=== PATIENT | male | born 1995 | race Caucasian/White ===

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

== ENCOUNTER 2017-09-22 15:49 | Emergency (ER) | payer BC ==
[2017-09-22] MEDS ORDERED: Ketorolac 30 MG/ML SDV IVPUSH ONE (16:33)
[2017-09-22] MEDS ORDERED: Sodium Chloride 0.9% 1,000 ML IV ONE (16:33)
[2017-09-22] MEDS ORDERED: Ondansetron 4 MG/2 ML SDV IVPUSH ONE (16:33)
--- NOTE | 2017-09-22 16:39 | EDM.PDOC ---
ED HPI GENERAL MEDICAL PROBLEM - General Chief Complaint: Headache Stated Complaint: PAIN IN HEAD Time Seen by Provider: 09/22/17 16:33 - History of Present Illness INITIAL COMMENTS - FREE TEXT/NARRATIVE: HISTORY AND PHYSICAL: History of present illness: Patient is 22-year-old male presents for concern of headache he states he had similar episodes with dehydration in the past states he is playing oliva or not he wants by mouth fluids earlier today to the no trauma fever chills or other complaints. Review of systems: As per history of present illness and below otherwise all systems reviewed and negative. Past medical history: As per history of present illness and as reviewed below otherwise noncontributory. Surgical history: As per history of present illness and as reviewed below otherwise noncontributory. Social history: No reported history of drug or alcohol abuse. Family history: As per history of present illness and as reviewed below otherwise noncontributory. Physical exam: HEENT: Atraumatic, normocephalic, pupils reactive, negative for conjunctival pallor or scleral icterus, mucous membranes dry, throat clear, neck supple, nontender, trachea midline. Lungs: Clear to auscultation, breath sounds equal bilaterally, chest nontender. Heart: S1S2, regular, negative for clicks, rubs, or JVD. Abdomen: Soft, nondistended, nontender. Negative for masses or hepatosplenomegaly. Negative for costovertebral tenderness. Pelvis: Stable nontender. Genitourinary: Deferred. Rectal: Deferred. Extremities: Atraumatic, negative for cords or calf pain. Neurovascular unremarkable. Neuro: Awake, alert, oriented. Cranial nerves II through XII unremarkable. Cerebellum unremarkable. Motor and sensory unremarkable throughout. Exam nonfocal. Diagnostics: Deferred Therapeutics: Normal saline 1 L bolus Toradol 30 mg IV Impression: #1 cephalgia #2 dehydration Definitive disposition and diagnosis as appropriate pending reevaluation and review of above. frontal headache Pain Score (Numeric/FACES): 10 - Related Data Allergies Allergy/AdvReac Type Severity Reaction Status Date / Time No Known Allergies Allergy Verified 09/22/17 16:29 Home Meds: Home Meds . [No Known Home Meds] 04/08/15 [History] Past Medical History - Past Health History Medical/Surgical History: Denies Medical/Surgical History Social & Family History - Family History Family Medical History: Noncontributory - Tobacco Use Smoking Status *Q: Never Smoker Years of Tobacco use: 1 Packs/Tins Daily: 0.1 Used Tobacco, but Quit: No Second Hand Smoke Exposure: No - Caffeine Use Caffeine Use: Reports: Coffee - Recreational Drug Use Recreational Drug Use: Yes Drug Use in Last 12 Months: Yes Recreational Drug Type: Reports: Marijuana/Hashish Recreational Drug Use Frequency: Weekly ED ROS GENERAL - Review of Systems Review Of Systems: ROS reveals no pertinent complaints other than HPI. ED EXAM, GENERAL - Physical Exam Exam: See Below (See dictation) Course - Vital Signs Last Recorded V/S: Last Vital Signs Temp 36.7 C 09/22/17 16:29 Pulse 64 09/22/17 16:29 Resp 18 09/22/17 16:29 BP 140/66 09/22/17 16:29 Pulse Ox 100 09/22/17 16:29 - Orders/Labs/Meds Orders: Active Orders 24 hr Category Date Time Status Sodium Chloride 0.9% [Normal Saline] 1,000 ml Med 09/22/17 16:33 Active IV STAT Medication Orders Sodium Chloride (Normal Saline) 1,000 mls @ 999 mls/hr IV STAT ONE Stop: 09/22/17 17:33 Meds: Medications Generic Name Dose Route Start Last Admin Trade Name Freq PRN Reason Stop Dose Admin Sodium Chloride 1,000 mls @ 999 mls/hr 09/22/17 16:33 Normal Saline IV 09/22/17 17:33 STAT ONE Discontinued Medications Generic Name Dose Route Start Last Admin Trade Name Freq PRN Reason Stop Dose Admin Ketorolac Tromethamine 30 mg 09/22/17 16:33 Toradol IVPUSH 09/22/17 16:34 ONETIME ONE Ondansetron HCl 4 mg 09/22/17 16:33 Zofran IVPUSH 09/22/17 16:34 ONETIME ONE Departure - Departure Time of Disposition: 16:38 Disposition: Home, Self-Care 01 Condition: Good Clinical Impression: Cephalgia, Dehydration - Discharge Information Referrals: PCP,None [Primary Care Provider] - Additional Instructions: The following information is given to patients seen in the emergency department who are being discharged to home. This information is to outline your options for follow-up care. We provide all patients seen in our emergency department with a follow-up referral. The need for follow-up, as well as the timing and circumstances, are variable depending upon the specifics of your emergency department visit. If you don't have a primary care physician on staff, we will provide you with a referral. We always advise you to contact your personal physician following an emergency department visit to inform them of the circumstance of the visit and for follow-up with them and/or the need for any referrals to a consulting specialist. The emergency department will also refer you to a specialist when appropriate. This referral assures that you have the opportunity for followup care with a specialist. All of these measure are taken in an effort to provide you with optimal care, which includes your followup. Under all circumstances we always encourage you to contact your private physician who remains a resource for coordinating your care. When calling for followup care, please make the office aware that this follow-up is from your recent emergency room visit. If for any reason you are refused follow-up, please contact the [facility] emergency department at and asked to speak to the emergency department charge nurse. Push fluids Motrin/Tylenol as directed follow-up primary medical doctor call to schedule routine appointment and return as needed as discussed - My Orders Last 24 Hours: My Active Orders 09/22/17 16:33 Sodium Chloride 0.9% [Normal Saline] 1,000 ml IV STAT - Assessment/Plan Last 24 Hours: My Active Orders 09/22/17 16:33 Sodium Chloride 0.9% [Normal Saline] 1,000 ml IV STAT
[2017-09-22 18:44] VITALS: BP 139/61
== END 2017-09-22 18:41 | disposition home or self-care (01) ==
LOC: MW.ED 15:49
DX: E86.0 Dehydration (principal); R51 Headache
CPT/HCPCS: 80305; 96361; 96374; 96375; 99284; J1885; J2405; J7040; 99283

== ENCOUNTER 2018-01-12 19:07 | Emergency (ER) | payer BC ==
[2018-01-12] MEDS ORDERED: Ketorolac 30 MG/ML SDV IVPUSH ONE (19:25)
[2018-01-12] MEDS ORDERED: Ondansetron 4 MG/2 ML SDV IVPUSH ONE (19:25)
[2018-01-12] MEDS ORDERED: Sodium Chloride 0.9% 1,000 ML IV ONE (19:25)
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
[2018-01-12 19:57] LABS: CHLORIDE,CL 104 mmol/L (98-107); SODIUM,NA 137 mmol/L (136-148)
[2018-01-13 02:49] VITALS: BP 123/54
== END 2018-01-12 21:15 | disposition home or self-care (01) ==
LOC: MW.ED 19:07
DX: F07.81 Postconcussional syndrome (principal)
CPT/HCPCS: 36415; 80053; 81001; 85025; 96361; 96374; 96375; 99284; J1885; J2405; J7040

== ENCOUNTER 2018-02-13 17:02 | Emergency (ER) | payer BC ==
[2018-02-13 17:16] VITALS: BP 115/59
[2018-02-13] MEDS ORDERED: Sodium Chloride 0.9% 1,000 ML IV ONE (17:30)
[2018-02-13] MEDS ORDERED: Ondansetron 4 MG/2 ML SDV IVPUSH ONE (17:30)
[2018-02-13] MEDS ORDERED: Ketorolac 30 MG/ML SDV IVPUSH ONE (17:30)
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
== END 2018-02-13 18:23 | disposition home or self-care (01) ==
LOC: MW.ED 17:02
DX: F07.81 Postconcussional syndrome (principal); R11.2 Nausea with vomiting, unspecified
CPT/HCPCS: 96361; 96374; 96375; 99283; J1885; J2405; J7040

== ENCOUNTER 2018-02-18 17:49 | Emergency (ER) | payer BC ==
[2018-02-18 18:04] VITALS: BP 130/55
[2018-02-18] MEDS ORDERED: Sodium Chloride 0.9% 1,000 ML IV ONE (18:04)
[2018-02-18] MEDS ORDERED: Ketorolac 30 MG/ML SDV IVPUSH ONE (18:04)
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
[2018-02-18] MEDS ORDERED: Prochlorperazine 10 MG/2 ML SDV IM ONE (18:05)
[2018-02-18] MEDS ORDERED: Sodium Chloride 0.9% 10 ML Syringe FLUSH PRN (18:05)
[2018-02-18] MEDS ORDERED: diphenhydrAMINE 50 MG/ML SDV IVPUSH ONE (18:05)
[2018-02-18] MEDS ORDERED: Sodium Chloride 0.9% 2.5 ML Syringe FLUSH PRN (18:05)
[2018-02-18 18:54] LABS: CHLORIDE,CL 103 mmol/L (98-107); SODIUM,NA 138 mmol/L (136-148)
[2018-02-18] MEDS ORDERED: Morphine 2 MG/ML Syringe IVPUSH ONE (19:06)
--- NOTE | 2018-02-21 09:25 | CT ---
EXAM DATE: 02/18/18 PATIENT'S AGE: 22 Patient: PRITI LARSEN Facility: [place], [place] Site . Site : 1995 Study: CT Head WO CONT [id number] 6:52:48 PM Ordering Physician: Doctor Mojica Final Report: INDICATION: Headache TECHNIQUE: CT head without contrast. COMPARISON: None available FINDINGS: The ventricles and sulci are within normal limits. There is no mass effect or midline shift. There is no loss of joshi-white differentiation. There is no evidence of an acute intracranial hemorrhage. No acute calvarial fracture is seen. The visualized paranasal sinuses and mastoid air cells are clear. The visualized orbits are within normal limits. IMPRESSION: No evidence of an acute intracranial hemorrhage, mass effect or loss of joshi- white differentiation. Dictated by Zay Diallo MD @ 02/18/2018 7:18:57 PM Please note that all CT scans at this facility use dose modulation, iterative reconstruction, and/or weight-based dosing when appropriate to reduce radiation dose to as low as reasonably achievable. Dictated by: Zay Diallo MD @ 02/18/2018 19:19:33 (Electronic Signature) Report Signed by Proxy. [facility] HOSPITALStephanie
== END 2018-02-18 20:07 | disposition home or self-care (01) ==
LOC: MW.ED 17:49
DX: G43.909 Migraine, unspecified, not intractable, without status migrainosus (principal)
CPT/HCPCS: 36415; 70450; 80053; 85025; 96361; 96372; 96374; 96375; 99284; J0780; J1200; J1885; J7040

== ENCOUNTER 2019-05-10 12:15 | Emergency (ER) | payer SELFPAY ==
--- NOTE | 2019-05-10 12:20 | EDM.PDOC ---
ED HPI GENERAL MEDICAL PROBLEM - General Stated Complaint: FAINTED, LOST CONSCIOUSNESS, DIZZY Time Seen by Provider: 05/10/19 12:18 Source of Information: Reports: Patient History Limitations: Reports: No Limitations - History of Present Illness INITIAL COMMENTS - FREE TEXT/NARRATIVE: HISTORY AND PHYSICAL: History of present illness: Patient is a 23-year-old male presenting to the emergency room for complaint of a syncopal event. She states 30 minutes ago he was boxing with his friend and fell down during boxing, losing this for 2 minutes. He denies being hit in head during the boxing and he is unsure if he hit his head when falling down. He states he feels dizzy, "feels drunk". Patient states that he had a similar episode a few months ago, but he was able to catch himself and "take it easy for the rest of the day". He also has complaints of a 7 out of 10 headache that he describes as "heaviness behind my eyes". Patient does have a history of migraine headaches. Nothing nothing alleviates or aggravates headache. He denies blurry vision, nausea, vomiting, abdominal pain, blood in stools or urine. He does have complaints of pain on the left side of his chest and right flank pain. During examination patient did note that he has been taking injectable steroids (Testosterone and Tren) from January to March of this year. Review of systems: As per history of present illness and below otherwise all systems reviewed and negative. Past medical history: As per history of present illness and as reviewed below otherwise noncontributory. Surgical history: As per history of present illness and as reviewed below otherwise noncontributory. Social history: See social history for further information Family history: As per history of present illness and as reviewed below otherwise noncontributory. Physical exam: General: He is a well-developed and well-nourished 23-year-old male. Alert and oriented. Nontoxic in appearance. Vital signs are stable and have been reviewed by me. HEENT: Atraumatic, normocephalic, pupils equal and reactive bilaterally, negative for conjunctival pallor or scleral icterus, mucous membranes moist, TMs normal bilaterally, throat clear, neck supple, nontender, trachea midline. No drooling or trismus noted. No meningeal signs. No hot potato voice noted. Lungs: Clear to auscultation, breath sounds equal bilaterally, chest nontender. Heart: S1S2, regular rate and rhythm without overt murmur C-spine/Back: No pinpoint vertebral tenderness upon palpation. No crepitus, step -offs or obvious deformities. Patient is ambulatory into the emergency room without difficulty or deficit. Able to rock back on heels and walk on toes. Denies any urinary or fecal incontinence. Denies any numbness, tingling or saddle paresthesia. Abdomen: Soft, nondistended, nontender. Negative for masses or hepatosplenomegaly. Positive for right-sided costovertebral tenderness. Skin: Intact, warm, dry. No lesions or rashes noted. Extremities: Atraumatic, moves all extremities per self without difficulty or deficits, negative for cords or calf pain. Neurovascular unremarkable. Neuro: Awake, alert, oriented. Cranial nerves II through XII unremarkable. Cerebellum unremarkable. Motor and sensory unremarkable throughout. Exam nonfocal. Notes: EKG done showing sinus rhythm with rate of 60. It it does suggest possible acute pericarditis and with his history of chest pain and I will add an ESR and CRP his workup. Dr Aguillon involved in patient care. Lab work is unremarkable. Patient states his headache is gone along with his dzziness, he feels comfortable being discharged to home. Supportive care measures were reviewed and discussed. Voices understanding and is agreeable to plan of care. Denies any further questions or concerns at this time. Diagnostics: CBC, CMP, ESR, CRP, troponin, EKG, one view chest x-ray, UA, orthostatic vital signs Therapeutics: Normal saline, meclizine Prescription: None Impression: Syncope Dizziness Plan: 1. Increase your oral fluids. Take the remainder of the day to avoid any strenuous activity. 2. Tylenol and/or ibuprofen as needed for pain management. 3. Follow-up with your primary care provider as we discussed. Return to the ED as needed and as discussed. Definitive disposition and diagnosis as appropriate pending reevaluation and review of above. Right Back Pain Score (Numeric/FACES): 7 - Related Data Allergies Allergy/AdvReac Type Severity Reaction Status Date / Time No Known Allergies Allergy Verified 05/10/19 12:36 Home Meds: Home Meds . [No Known Home Meds] 05/10/19 [History] Past Medical History - Past Health History Medical/Surgical History: Denies Medical/Surgical History Social & Family History - Family History Family Medical History: Noncontributory - Caffeine Use Caffeine Use: Reports: Coffee ED ROS GENERAL - Review of Systems Review Of Systems: ROS reveals no pertinent complaints other than HPI. ED EXAM, DIZZINESS - Physical Exam Exam: See Below (See dictation) Course - Vital Signs Last Recorded V/S: Last Vital Signs Temp 96.9 F 05/10/19 12:37 Pulse 52 L 05/10/19 15:05 Resp 18 05/10/19 15:05 BP 109/49 L 05/10/19 15:05 Pulse Ox 97 05/10/19 15:05 Orthostatic Blood Pressure [ 115/67 Standing] Orthostatic Blood Pressure [ 125/62 Sitting] Orthostatic Blood Pressure [ 138/72 Supine] - Orders/Labs/Meds Orders: Active Orders 24 hr Category Date Time Status EKG Documentation Completion [RC] STAT Care 05/10/19 12:34 Active Orthostatic Vital Signs [RC] ASDIRECTED Care 05/10/19 12:35 Active Chest 1V Frontal [CR] Stat Exams 05/10/19 12:34 Taken Labs: Laboratory Tests 05/10/19 05/10/19 05/10/19 Range/Units 12:25 12:25 12:25 WBC 7.29 (4.0-11.0) K/uL RBC 5.75 (4.50-5.90) M/uL Hgb 16.0 (13.0-17.0) g/dL Hct 48.8 (38.0-50.0) % MCV 84.9 (80.0-98.0) fL MCH 27.8 (27.0-32.0) pg MCHC 32.8 (31.0-37.0) g/dL RDW Std Deviation 40.5 (28.0-62.0) fl RDW Coeff of Brenda 13 (11.0-15.0) % Plt Count 152 (150-400) K/uL MPV 12.20 H (7.40-12.00) fL Neut % (Auto) 77.8 (48.0-80.0) % Lymph % (Auto) 15.5 L (16.0-40.0) % [place] % (Auto) 5.5 (0.0-15.0) % Eos % (Auto) 1.1 (0.0-7.0) % Baso % (Auto) 0.1 (0.0-1.5) % Neut # (Auto) 5.7 (1.4-5.7) K/uL Lymph # (Auto) 1.1 (0.6-2.4) K/uL [place] # (Auto) 0.4 (0.0-0.8) K/uL Eos # (Auto) 0.1 (0.0-0.7) K/uL Baso # (Auto) 0.0 (0.0-0.1) K/uL Nucleated RBC % 0.0 /100WBC Nucleated RBCs # 0 K/uL ESR 1 (0-14) mm/hr Sodium 142 (136-148) mmol/L Potassium 4.3 (3.5-5.1) mmol/L Chloride 104 (98-107) mmol/L Carbon Dioxide 27.6 (21.0-32.0) mmol/L BUN 23 H (7.0-18.0) mg/dL Creatinine 1.2 (0.8-1.3) mg/dL Est Cr Clr Drug Dosing 106.88 mL/min Estimated GFR (MDRD) > 60.0 ml/min Glucose 96 (74-106) mg/dL Calcium 8.5 (8.5-10.1) mg/dL Total Bilirubin 0.3 (0.2-1.0) mg/dL AST 36 (15-37) IU/L ALT 55 (14-63) IU/L Alkaline Phosphatase 73 (46-116) U/L Troponin I < 0.050 (0.000-0.056) ng/mL C-Reactive Protein <0.20 (0.00-0.90) mg/dL Total Protein 7.1 (6.4-8.2) g/dL Albumin 4.1 (3.4-5.0) g/dL Globulin 3.0 (2.6-4.0) g/dL Albumin/Globulin Ratio 1.4 (0.9-1.6) Urine Color Urine Appearance Urine pH (5.0-8.0) Ur Specific [place] (1.001-1.035) Urine Protein (NEGATIVE) mg/dL Urine Glucose (UA) (NEGATIVE) mg/dL Urine Ketones (NEGATIVE) mg/dL Urine Occult Blood (NEGATIVE) Urine Nitrite (NEGATIVE) Urine Bilirubin (NEGATIVE) Urine Urobilinogen (<2.0) EU/dL Ur Leukocyte Esterase (NEGATIVE) Urine Opiates Screen (NEGATIVE) Ur Oxycodone Screen (NEGATIVE) Urine Methadone Screen (NEGATIVE) Ur Barbiturates Screen (NEGATIVE) Ur Phencyclidine Scrn (NEGATIVE) Ur Amphetamine Screen (NEGATIVE) U Methamphetamines Scrn (NEGATIVE) U Benzodiazepines Scrn (NEGATIVE) U Cocaine Metab Screen (NEGATIVE) U Marijuana (THC) Screen (NEGATIVE) 05/10/19 05/10/19 Range/Units 12:45 12:45 WBC (4.0-11.0) K/uL RBC (4.50-5.90) M/uL Hgb (13.0-17.0) g/dL Hct (38.0-50.0) % MCV (80.0-98.0) fL MCH (27.0-32.0) pg MCHC (31.0-37.0) g/dL RDW Std Deviation (28.0-62.0) fl RDW Coeff of Brenda (11.0-15.0) % Plt Count (150-400) K/uL MPV (7.40-12.00) fL Neut % (Auto) (48.0-80.0) % Lymph % (Auto) (16.0-40.0) % [place] % (Auto) (0.0-15.0) % Eos % (Auto) (0.0-7.0) % Baso % (Auto) (0.0-1.5) % Neut # (Auto) (1.4-5.7) K/uL Lymph # (Auto) (0.6-2.4) K/uL [place] # (Auto) (0.0-0.8) K/uL Eos # (Auto) (0.0-0.7) K/uL Baso # (Auto) (0.0-0.1) K/uL Nucleated RBC % /100WBC Nucleated RBCs # K/uL ESR (0-14) mm/hr Sodium (136-148) mmol/L Potassium (3.5-5.1) mmol/L Chloride (98-107) mmol/L Carbon Dioxide (21.0-32.0) mmol/L BUN (7.0-18.0) mg/dL Creatinine (0.8-1.3) mg/dL Est Cr Clr Drug Dosing mL/min Estimated GFR (MDRD) ml/min Glucose (74-106) mg/dL Calcium (8.5-10.1) mg/dL Total Bilirubin (0.2-1.0) mg/dL AST (15-37) IU/L ALT (14-63) IU/L Alkaline Phosphatase (46-116) U/L Troponin I (0.000-0.056) ng/mL C-Reactive Protein (0.00-0.90) mg/dL Total Protein (6.4-8.2) g/dL Albumin (3.4-5.0) g/dL Globulin (2.6-4.0) g/dL Albumin/Globulin Ratio (0.9-1.6) Urine Color YELLOW Urine Appearance CLEAR Urine pH 6.0 (5.0-8.0) Ur Specific [place] 1.015 (1.001-1.035) Urine Protein NEGATIVE (NEGATIVE) mg/dL Urine Glucose (UA) NEGATIVE (NEGATIVE) mg/dL Urine Ketones NEGATIVE (NEGATIVE) mg/dL Urine Occult Blood NEGATIVE (NEGATIVE) Urine Nitrite NEGATIVE (NEGATIVE) Urine Bilirubin NEGATIVE (NEGATIVE) Urine Urobilinogen 0.2 (<2.0) EU/dL Ur Leukocyte Esterase NEGATIVE (NEGATIVE) Urine Opiates Screen NEGATIVE (NEGATIVE) Ur Oxycodone Screen NEGATIVE (NEGATIVE) Urine Methadone Screen NEGATIVE (NEGATIVE) Ur Barbiturates Screen NEGATIVE (NEGATIVE) Ur Phencyclidine Scrn NEGATIVE (NEGATIVE) Ur Amphetamine Screen NEGATIVE (NEGATIVE) U Methamphetamines Scrn NEGATIVE (NEGATIVE) U Benzodiazepines Scrn NEGATIVE (NEGATIVE) U Cocaine Metab Screen NEGATIVE (NEGATIVE) U Marijuana (THC) Screen POSITIVE (NEGATIVE) Meds: Medications Discontinued Medications Generic Name Dose Route Start Last Admin Trade Name Freq PRN Reason Stop Dose Admin Sodium Chloride 1,000 mls @ 999 mls/hr 05/10/19 12:34 05/10/19 12:47 Normal Saline IV 05/10/19 13:34 999 mls/hr STAT ONE Administration Meclizine HCl 25 mg 05/10/19 14:12 05/10/19 14:23 Antivert PO 05/10/19 14:13 25 mg ONETIME ONE Administration Departure - Departure Time of Disposition: 14:56 Disposition: Home, Self-Care 01 Clinical Impression: Dizziness Syncope Qualifiers: Syncope type: unspecified Qualified Code(s): R55 - Syncope and collapse - Discharge Information Instructions: Syncope, [id number] Referrals: PCP,Unknown [Ordering Only Provider] - Forms: ED Department Discharge Additional Instructions: The following information is given to patients seen in the emergency department who are being discharged to home. This information is to outline your options for follow-up care. We provide all patients seen in our emergency department with a follow-up referral. The need for follow-up, as well as the timing and circumstances, are variable depending upon the specifics of your emergency department visit. If you don't have a primary care physician on staff, we will provide you with a referral. We always advise you to contact your personal physician following an emergency department visit to inform them of the circumstance of the visit and for follow-up with them and/or the need for any referrals to a consulting specialist. The emergency department will also refer you to a specialist when appropriate. This referral assures that you have the opportunity for follow-up care with a specialist. All of these measure are taken in an effort to provide you with optimal care, which includes your follow-up. Under all circumstances we always encourage you to contact your private physician who remains a resource for coordinating your care. When calling for follow-up care, please make the office aware that this follow-up is from your recent emergency room visit. If for any reason you are refused follow-up, please contact the [facility] Emergency Department at and asked to speak to the emergency department charge nurse. [facility] [address] [place] [id number] [address] [address] 1. Increase your oral fluids. Take the remainder of the day to avoid any strenuous activity. 2. Tylenol and/or ibuprofen as needed for pain management. 3. Follow-up with your primary care provider as we discussed. Return to the ED as needed and as discussed. - My Orders Last 24 Hours: My Active Orders 05/10/19 12:34 EKG Documentation Completion [RC] STAT Chest 1V Frontal [CR] Stat 05/10/19 12:35 Orthostatic Vital Signs [RC] ASDIRECTED - Assessment/Plan Last 24 Hours: My Active Orders 05/10/19 12:34 EKG Documentation Completion [RC] STAT Chest 1V Frontal [CR] Stat 05/10/19 12:35 Orthostatic Vital Signs [RC] ASDIRECTED
[2019-05-10] MEDS ORDERED: Sodium Chloride 0.9% 1,000 ML IV ONE (12:34)
--- NOTE | 2019-05-10 13:55 | CT ---
Indication: CHEST PAIN, PT STATES SYNCOPE FOR 2 MINS Technique: CT of the head without contrast. Coronal and sagittal reformats. Bone and soft tissue algorithm. Comparison: 02/18/2018 CT head Findings: No acute intracranial hemorrhage or extra-axial collection. No evidence of acute cortical infarction. No mass effect or midline shift. Normal cerebral volume. The ventricles are normal in size, shape and contour. There is normal reardon and white matter differentiation. The orbital contents are normal. Paranasal sinuses are well aerated. Mastoid air cells are clear. No calvarial fractures. No lytic or sclerotic osseous lesions within the calvarium or skull base. Scalp and other imaged soft tissue structures are normal. Impression: No acute intracranial abnormality. Please note that all CT scans at this facility use dose modulation, iterative reconstruction, and/or weight-based dosing when appropriate to reduce radiation dose to as low as reasonably achievable. Dictated by Herber Landrum MD @ May 10 2019 1:51PM Signed by Dr. Herber Landrum @ May 10 2019 1:53PM
[2019-05-10 13:57] LABS: BLOOD UREA NITROGEN,BUN 23 mg/dL (7.0-18.0); CARBON DIOXIDE,CO2 27.6 mmol/L (21.0-32.0); CHLORIDE,CL 104 mmol/L (98-107); GLUCOSE RANDOM 96 mg/dL (74-106); POTASSIUM,K 4.3 mmol/L (3.5-5.1); SODIUM,NA 142 mmol/L (136-148)
[2019-05-10] MEDS ORDERED: Meclizine 25 MG Tab PO ONE (14:12)
[2019-05-10 15:07] VITALS: BP 109/49; PULSE 52
--- NOTE | 2019-05-10 15:43 | CR ---
INDICATION: CHEST PAIN TECHNIQUE: Chest 1 view. COMPARISON: None. FINDINGS: Cardiovascular and mediastinum: Heart size and vasculature are normal in caliber and appearance. Mediastinum is within normal limits. Lungs and pleural space: Lungs are clear. No sign of infiltrate or mass. No sign of pleural effusion. No pneumothorax. Bones and soft tissues: No significant findings. IMPRESSION: Unremarkable chest. Dictated by: Herber Diaz MD @ 05/10/2019 15:41:33 (Electronically Signed)
== END 2019-05-10 15:08 | disposition home or self-care (01) ==
LOC: MW.ED 12:15
DX: R55 Syncope and collapse (principal)
CPT/HCPCS: 36415; 70450; 71045; 80053; 80305; 81003; 84484; 85025; 85652; 86140; 93005; 96360; 99285; A9270; J7040

== ENCOUNTER 2019-11-30 08:09 | Emergency (ER) | payer SELFPAY ==
--- NOTE | 2019-11-30 08:43 | EDM.PDOC ---
ED HPI GENERAL MEDICAL PROBLEM - General Chief Complaint: General Stated Complaint: CHEST PAIN/SOB Time Seen by Provider: 11/30/19 08:28 Source of Information: Reports: Patient History Limitations: Reports: No Limitations - History of Present Illness INITIAL COMMENTS - FREE TEXT/NARRATIVE: This 24 year old male is admitted to the ED with a chief complaint of chest pain that is dull without radiation for one week. He states that he has a pinching sensation across his upper chest from left to right. He denies any SOB. He states that the chest pain comes and goes and has not gotten any worse since it started one week ago. He denies any other symptoms. He states that he smokes marijuana once a week. He denies any other drug use. He complains of occasional nausea but no vomiting. He has a negative heart history and no comorbidities. He denies any other symptoms at this time. Onset: Gradual (one week) Duration: Week(s): (one week) Location: Reports: Chest Severity: Mild Associated Symptoms: Reports: No Other Symptoms Abdominal Pain Score (Numeric/FACES): 6 - Related Data Allergies Allergy/AdvReac Type Severity Reaction Status Date / Time No Known Allergies Allergy Verified 11/30/19 08:20 Home Meds: Home Meds . [No Known Home Meds] 05/10/19 [History] Past Medical History - Past Health History Medical/Surgical History: Denies Medical/Surgical History - Infectious Disease History Infectious Disease History: Reports: None Social & Family History - Family History Family Medical History: Noncontributory - Tobacco Use Smoking Status *Q: Current Every Day Smoker Years of Tobacco use: 4 Packs/Tins Daily: 0.1 - Caffeine Use Caffeine Use: Reports: None - Recreational Drug Use Recreational Drug Use: No ED ROS GENERAL - Review of Systems Review Of Systems: See Below Constitutional: Reports: No Symptoms HEENT: Reports: No Symptoms Respiratory: Reports: No Symptoms Cardiovascular: Reports: Chest Pain Endocrine: Reports: No Symptoms GI/Abdominal: Reports: No Symptoms : Reports: No Symptoms Musculoskeletal: Reports: No Symptoms Skin: Reports: No Symptoms Neurological: Reports: No Symptoms ED EXAM, GENERAL - Physical Exam Exam: See Below Exam Limited By: No Limitations General Appearance: Alert, WD/WN, No Apparent Distress Ears: Normal External Exam, Normal Canal, Hearing Grossly Normal, Normal TMs Nose: Normal Inspection, Normal Mucosa, No Blood Throat/Mouth: Normal Inspection, Normal Lips, Normal Teeth, Normal Gums, Normal Oropharynx, Normal Voice, No Airway Compromise Neck: Normal Inspection, Supple, Non-Tender, Full Range of Motion Respiratory/Chest: No Respiratory Distress, Lungs Clear, Normal Breath Sounds, Chest Non-Tender Cardiovascular: Normal Peripheral Pulses, Regular Rate, Rhythm, No Edema, No Murmur Peripheral Pulses: 3+: Femoral (L), Femoral (R), Dorsalis Pedis (L), Dorsalis Pedis (R) GI/Abdominal: Normal Bowel Sounds, Soft, Non-Tender, No Organomegaly, No Distention, No Abnormal Bruit, No Mass (Male) Exam: Deferred Rectal (Males) Exam: Deferred Back Exam: Normal Inspection, Full Range of Motion Extremities: Normal Inspection, Non-Tender, No Pedal Edema, Normal Capillary Refill Neurological: Alert, Oriented (times 4), CN II-XII Intact, Normal Cognition, Normal Gait, Normal Reflexes, No Motor/Sensory Deficits Psychiatric: Normal Affect, Normal Mood Skin Exam: Warm, Dry, Intact, Normal Color, No Rash Lymphatic: No Adenopathy Course - Vital Signs Text/Narrative:: I have reviewed all of the patient labs and chest x-ray which was unremarkable. He will be discharged. He agrees with the discharge plan. Last Recorded V/S: Last Vital Signs Temp 97.0 F 11/30/19 08:46 Pulse 55 L 11/30/19 08:46 Resp 18 11/30/19 08:46 BP 116/54 L 11/30/19 08:46 Pulse Ox 100 11/30/19 08:46 - Orders/Labs/Meds Orders: Active Orders 24 hr Category Date Time Status EKG 12 Lead [EKG Documentation Completion] [RC] STAT Care 11/30/19 08:44 Ordered Labs: Laboratory Tests 11/30/19 11/30/19 11/30/19 Range/Units 09:00 09:00 09:05 WBC 6.47 (4.0-11.0) K/uL RBC 5.36 (4.50-5.90) M/uL Hgb 15.5 (13.0-17.0) g/dL Hct 48.1 (38.0-50.0) % MCV 89.7 (80.0-98.0) fL MCH 28.9 (27.0-32.0) pg MCHC 32.2 (31.0-37.0) g/dL RDW Std Deviation 42.8 (28.0-62.0) fl RDW Coeff of Brenda 13 (11.0-15.0) % Plt Count 129 L (150-400) K/uL MPV 11.00 (7.40-12.00) fL Neut % (Auto) 70.9 (48.0-80.0) % Lymph % (Auto) 20.7 (16.0-40.0) % [place] % (Auto) 6.5 (0.0-15.0) % Eos % (Auto) 1.4 (0.0-7.0) % Baso % (Auto) 0.5 (0.0-1.5) % Neut # (Auto) 4.6 (1.4-5.7) K/uL Lymph # (Auto) 1.3 (0.6-2.4) K/uL [place] # (Auto) 0.4 (0.0-0.8) K/uL Eos # (Auto) 0.1 (0.0-0.7) K/uL Baso # (Auto) 0.0 (0.0-0.1) K/uL Nucleated RBC % 0.0 /100WBC Nucleated RBCs # 0 K/uL Sodium 142 (136-148) mmol/L Potassium 4.1 (3.5-5.1) mmol/L Chloride 105 (98-107) mmol/L Carbon Dioxide 30.5 (21.0-32.0) mmol/L BUN 17 (7.0-18.0) mg/dL Creatinine 1.2 (0.8-1.3) mg/dL Est Cr Clr Drug Dosing 109.12 mL/min Estimated GFR (MDRD) > 60.0 ml/min Glucose 96 (74-106) mg/dL Calcium 9.0 (8.5-10.1) mg/dL Total Bilirubin 0.5 (0.2-1.0) mg/dL AST 21 (15-37) IU/L ALT 50 (14-63) IU/L Alkaline Phosphatase 56 (46-116) U/L Troponin I < 0.050 (0.000-0.056) ng/mL Total Protein 7.1 (6.4-8.2) g/dL Albumin 3.9 (3.4-5.0) g/dL Globulin 3.2 (2.6-4.0) g/dL Albumin/Globulin Ratio 1.2 (0.9-1.6) Urine Opiates Screen NEGATIVE (NEGATIVE) Ur Oxycodone Screen NEGATIVE (NEGATIVE) Urine Methadone Screen NEGATIVE (NEGATIVE) Ur Barbiturates Screen NEGATIVE (NEGATIVE) Ur Phencyclidine Scrn NEGATIVE (NEGATIVE) Ur Amphetamine Screen NEGATIVE (NEGATIVE) U Methamphetamines Scrn NEGATIVE (NEGATIVE) U Benzodiazepines Scrn NEGATIVE (NEGATIVE) U Cocaine Metab Screen NEGATIVE (NEGATIVE) U Marijuana (THC) Screen POSITIVE (NEGATIVE) Departure - Departure Time of Disposition: 10:49 Disposition: Home, Self-Care 01 Condition: Good Clinical Impression: Atypical chest pain - Discharge Information *PRESCRIPTION DRUG MONITORING PROGRAM REVIEWED*: Yes *COPY OF PRESCRIPTION DRUG MONITORING REPORT IN PATIENT ESTRADA: Yes Instructions: Nonspecific Chest Pain, Adult, [id number] Referrals: PCP,None [Primary Care Provider] - Forms: ED Department Discharge, ED Return to Work/School Form Additional Instructions: Follow up with your PCP in the next two to four days. Rest for the next 24 hours. Return to the ED if your condition gets worse or should you have any questions or concerns. The following information is given to patients seen in the emergency department who are being discharged to home. This information is to outline your options for follow-up care. We provide all patients seen in our emergency department with a follow-up referral. The need for follow-up, as well as the timing and circumstances, are variable depending upon the specifics of your emergency department visit. If you don't have a primary care physician on staff, we will provide you with a referral. We always advise you to contact your personal physician following an emergency department visit to inform them of the circumstance of the visit and for follow-up with them and/or the need for any referrals to a consulting specialist. The emergency department will also refer you to a specialist when appropriate. This referral assures that you have the opportunity for follow-up care with a specialist. All of these measure are taken in an effort to provide you with optimal care, which includes your follow-up. Under all circumstances we always encourage you to contact your private physician who remains a resource for coordinating your care. When calling for follow-up care, please make the office aware that this follow-up is from your recent emergency room visit. If for any reason you are refused follow-up, please contact the [facility] Emergency Department at and asked to speak to the emergency department charge nurse. Sepsis Event Note - Evaluation Sepsis Screening Result: No Definite Risk - Focused Exam Vital Signs: Vital Signs Temp Pulse Resp BP Pulse Ox 11/30/19 08:46 97.0 F 55 L 18 116/54 L 100 11/30/19 08:21 97.3 F 66 18 127/72 97 Date Exam was Performed: 11/30/19 Time Exam was Performed: 10:47 - My Orders Last 24 Hours: My Active Orders 11/30/19 08:44 EKG 12 Lead [EKG Documentation Completion] [RC] STAT - Assessment/Plan Last 24 Hours: My Active Orders 11/30/19 08:44 EKG 12 Lead [EKG Documentation Completion] [RC] STAT
--- NOTE | 2019-11-30 09:16 | CR ---
Chest: AP view of the chest was obtained. Comparison: Prior chest x-ray of 05/10/19. Heart size and mediastinum are normal. Lungs show no acute parenchymal change. Bony structures are grossly intact. Impression: 1. Nothing acute is appreciated on AP chest x-ray. Diagnostic code #1 Study was dictated in MDT
[2019-11-30 09:32] LABS: BLOOD UREA NITROGEN,BUN 17 mg/dL (7.0-18.0); CARBON DIOXIDE,CO2 30.5 mmol/L (21.0-32.0); CHLORIDE,CL 105 mmol/L (98-107); GLUCOSE RANDOM 96 mg/dL (74-106); POTASSIUM,K 4.1 mmol/L (3.5-5.1); SODIUM,NA 142 mmol/L (136-148)
[2019-11-30 09:45] VITALS: PULSE 55
[2019-11-30 20:17] VITALS: BP 133/69
== END 2019-11-30 11:16 | disposition home or self-care (01) ==
LOC: MW.ED 08:09
DX: R07.89 Other chest pain (principal); F17.210 Nicotine dependence, cigarettes, uncomplicated
CPT/HCPCS: 71045; 71045-26; 80053; 80305-QW; 84484; 85025; 93005; 99284; 99285-25

== ENCOUNTER 2021-07-09 13:08 | Emergency (ER) | payer BC ==
[2021-07-09] MEDS ORDERED: Ketorolac 30 MG/ML SDV IVPUSH ONE (13:32)
[2021-07-09] MEDS ORDERED: Sodium Chloride 0.9% 1,000 ML IV ONE (13:32)
[2021-07-09 14:04] LABS: BLOOD UREA NITROGEN,BUN 15 mg/dL (7.0-18.0); CARBON DIOXIDE,CO2 25.6 mmol/L (21.0-32.0); CHLORIDE,CL 104 mmol/L (98-107); GLUCOSE RANDOM 108 mg/dL (74-106); POTASSIUM,K 3.7 mmol/L (3.5-5.1); SODIUM,NA 141 mmol/L (136-148)
--- NOTE | 2021-07-09 14:10 | CR ---
INDICATION: Chest pain and shortness of breath. TECHNIQUE: Chest 1 views. COMPARISON: 11/30/2019. FINDINGS: Cardiovascular and mediastinum: Heart size and vasculature are normal in caliber and appearance. Lungs and pleural spaces: Lungs are clear. No sign of infiltrate or mass. No sign of pleural effusion. No pneumothorax. Bones and soft tissues: No significant findings. IMPRESSION: No acute findings and no significant changes from the prior exam. Dictated by Christian Ken MD @ 07/09/2021 2:08:56 PM (Electronically Signed)
--- NOTE | 2021-07-09 14:24 | PCM.EKG ---
#1 Interpretation Time: 14:23 EKG Interpretation Comments: EKG: NSR, nonspecific ST/T changes, Rate -62
--- NOTE | 2021-07-09 14:33 | EDM.PDOC ---
ED HPI GENERAL MEDICAL PROBLEM - General Chief Complaint: Respiratory Problem Stated Complaint: SOB/CONGESTION Time Seen by Provider: 07/09/21 13:12 Source of Information: Reports: Patient History Limitations: Reports: No Limitations - History of Present Illness INITIAL COMMENTS - FREE TEXT/NARRATIVE: HISTORY AND PHYSICAL: History of present illness: Patient is a 25-year-old male who presents to the emergency room with complaints of shortness of breath, left anterior and lateral chest pain and dizziness over the past 6 days. He states he feels sinus congestion along with the symptoms. Patient denies any fever, chills, headache, change in vision, syncope or near syncope. Denies any back pain, cough, abdominal pain, nausea, vomiting, diarrhea, constipation or dysuria. Has not noted any blood in urine or stool. Patient has been eating and drinking appropriately. No recent travel or sick contacts. Review of systems: As per history of present illness and below otherwise all systems reviewed and negative. Past medical history: As per history of present illness and as reviewed below otherwise noncontributory. Surgical history: As per history of present illness and as reviewed below otherwise noncontributory. Social history: See social history for further information Family history: As per history of present illness and as reviewed below otherwise noncont ributory. Physical exam: General: Well developed and well nourished. Alert and orientated x 3. Nontoxic in appearance and in no acute distress. Vital signs are stable and have been reviewed by me. Nursing notes were reviewed. HEENT: Atraumatic, normocephalic, pupils equal and reactive bilaterally, negative for conjunctival pallor or scleral icterus, mucous membranes moist, TMs normal bilaterally, throat clear, neck supple, nontender, trachea midline. No drooling or trismus noted. No meningeal signs. No hot potato voice noted. Lungs: Clear to auscultation bilaterally. No wheezes, rales, or rhonchi. Chest nontender. Normal work of breathing, no accessory muscles used. Heart: S1S2, regular rate and rhythm without overt murmur, gallops, or rubs. No JVD. No peripheral edema Abdomen: Soft, nondistended, nontender. Normoactive bowel sounds. Negative for masses or costovertebral tenderness. Pelvis: Stable nontender. Genitourinary/Rectal: Deferred. Skin: Intact, warm, dry. No lesions or rashes noted. Hematologic: No petechiae or purpra. Mucosa appropriate color and normal nail bed color and refill. Extremities: Atraumatic, moves all extremities per self without difficulty or deficits, negative for cords or calf pain. Neurovascular unremarkable. Neuro: Awake, alert, oriented. Cranial nerves II through XII unremarkable. Cerebellum unremarkable. Motor and sensory unremarkable throughout. Exam nonfocal. Psychiatric: Mood and affect are appropriate. Normal thought process. Answering questions appropriately. Please note that the patient was seen and evaluated during the 2019 SARS-CoV-2 novel coronavirus pandemic period. Community viral transmission is ongoing at time of this encounter and the emergency department is operating under pandemic response procedures. Medical Decision Making: Patient is a 25-year-old male who presents to the emergency room with complaints of a 6-day history of left chest pain, shortness of breath and dizziness. He states the discomfort is improved when he is laying flat otherwise describes it as constant. Nothing makes the pain worse or exacerbated. Physical exam is unremarkable. Vital signs are stable. EKG shows normal sinus rhythm with no ST concerns. We will do cardiac work-up. Patient states he has no concern for COVID-19 but is agreeable for testing. Chest x-ray shows no acute findings. Lab work is unremarkable. Troponin is negative. Vital signs are stable. I have talked with the patient about today's findings, in addition to providing specific details for plan of care. Reassessment at the time of disposition demonstrates that the patient is in no acute distress. The patient is stable for discharge, counseling was provided and we discussed in great detail signs and symptoms that would prompt them to return to the Emergency Department. Medication, follow up and supportive care measures were reviewed and discussed. Voices understanding and is agreeable to plan of care. Denies any further questions or concerns at this time. Diagnostics: CBC, CMP, EKG, chest x-ray Therapeutics: Toradol, NS Prescription: None Impression: Nonspecific chest pain Plan: 1. You were evaluated today on an emergent basis. Your lab work, cardiac enzymes, chest x-ray, and EKG are within normal limits. 2. You can alternate Tylenol and ibuprofen as needed for pain and fever management. 3. We encourage you to follow up with your primary care provider and/or recommended specialist in the next few days for re-evaluation and further care/management. 4. If your symptoms should worsen, new symptoms develop or any of the signs and symptoms we discussed should arise please return to the emergency room or call 911 (if needed). Definitive disposition and diagnosis as appropriate pending reevaluation and review of above. Chest Pain Score (Numeric/FACES): 8 - Related Data Allergies Allergy/AdvReac Type Severity Reaction Status Date / Time No Known Allergies Allergy Verified 07/09/21 13:45 Home Meds: Home Meds . [No Known Home Meds] 05/10/19 [History] Past Medical History - Past Health History Medical/Surgical History: Denies Medical/Surgical History - Infectious Disease History Infectious Disease History: Reports: None Social & Family History - Family History Family Medical History: No Pertinent Family History - Tobacco Use Tobacco Use Status *Q: Current Some Day Tobacco User Years of Tobacco use: 5 Packs/Tins Daily: 1 - Caffeine Use Caffeine Use: Reports: None - Recreational Drug Use Recreational Drug Use: Yes Recreational Drug Type: Reports: Marijuana/Hashish Recreational Drug Use Frequency: Daily ED ROS GENERAL - Review of Systems Review Of Systems: Comprehensive ROS is negative, except as noted in HPI. ED EXAM, GENERAL - Physical Exam Exam: See Below (See dictation) Course - Vital Signs Last Recorded V/S: Last Vital Signs Temp 97.2 F 07/09/21 13:30 Pulse 56 L 07/09/21 13:30 Resp 16 07/09/21 13:30 BP 119/59 L 07/09/21 13:30 Pulse Ox 99 07/09/21 13:30 - Orders/Labs/Meds Labs: Laboratory Tests 07/09/21 07/09/21 07/09/21 Range/Units 13:30 13:30 13:35 WBC 7.54 (4.0-11.0) K/uL RBC 5.04 (4.50-5.90) M/uL Hgb 15.0 (13.0-17.0) g/dL Hct 44.3 (38.0-50.0) % MCV 87.9 (80.0-98.0) fL MCH 29.8 (27.0-32.0) pg MCHC 33.9 (31.0-37.0) g/dL RDW Std Deviation 44.6 (28.0-62.0) fl RDW Coeff of Brenda 14 (11.0-15.0) % Plt Count 134 L (150-400) K/uL MPV 10.90 (7.40-12.00) fL Neut % (Auto) 67.5 (48.0-80.0) % Lymph % (Auto) 24.1 (16.0-40.0) % Shelby % (Auto) 5.3 (0.0-15.0) % Eos % (Auto) 2.7 (0.0-7.0) % Baso % (Auto) 0.4 (0.0-1.5) % Neut # (Auto) 5.1 (1.4-5.7) K/uL Lymph # (Auto) 1.8 (0.6-2.4) K/uL Shelby # (Auto) 0.4 (0.0-0.8) K/uL Eos # (Auto) 0.2 (0.0-0.7) K/uL Baso # (Auto) 0.0 (0.0-0.1) K/uL Nucleated RBC % 0.0 /100WBC Nucleated RBCs # 0 K/uL Sodium 141 (136-148) mmol/L Potassium 3.7 (3.5-5.1) mmol/L Chloride 104 (98-107) mmol/L Carbon Dioxide 25.6 (21.0-32.0) mmol/L BUN 15 (7.0-18.0) mg/dL Creatinine 1.2 (0.8-1.3) mg/dL Est Cr Clr Drug Dosing 111.31 mL/min Estimated GFR (MDRD) > 60.0 ml/min Glucose 108 H (74-106) mg/dL Calcium 8.9 (8.5-10.1) mg/dL Total Bilirubin 0.5 (0.2-1.0) mg/dL AST 24 (15-37) IU/L ALT 48 (14-63) IU/L Alkaline Phosphatase 60 (46-116) U/L Troponin I < 0.050 (0.000-0.056) ng/mL Total Protein 7.2 (6.4-8.2) g/dL Albumin 3.8 (3.4-5.0) g/dL Globulin 3.4 (2.6-4.0) g/dL Albumin/Globulin Ratio 1.1 (0.9-1.6) SARS-CoV-2 RNA (EVAN) NEGATIVE (NEGATIVE) Meds: Medications Discontinued Medications Generic Name Dose Route Start Last Admin Trade Name Mamie PRN Reason Stop Dose Admin Sodium Chloride 1,000 mls @ 999 mls/hr 07/09/21 13:32 07/09/21 13:40 Normal Saline IV 07/09/21 14:32 999 mls/hr STAT ONE Administration Ketorolac Tromethamine 30 mg 07/09/21 13:32 07/09/21 13:47 Ketorolac 30 Mg/Ml Sdv IVPUSH 07/09/21 13:33 30 mg ONETIME ONE Administration Departure - Departure Time of Disposition: 15:04 Disposition: Home, Self-Care 01 Clinical Impression: Nonspecific chest pain - Discharge Information Referrals: PCP,None [Primary Care Provider] - Forms: ED Department Discharge Additional Instructions: The following information is given to patients seen in the emergency department who are being discharged to home. This information is to outline your options for follow-up care. We provide all patients seen in our emergency department with a follow-up referral. The need for follow-up, as well as the timing and circumstances, are variable depending upon the specifics of your emergency department visit. If you don't have a primary care physician on staff, we will provide you with a referral. We always advise you to contact your personal physician following an emergency department visit to inform them of the circumstance of the visit and for follow-up with them and/or the need for any referrals to a consulting specialist. The emergency department will also refer you to a specialist when appropriate. This referral assures that you have the opportunity for follow-up care with a specialist. All of these measure are taken in an effort to provide you with optimal care, which includes your follow-up. Under all circumstances we always encourage you to contact your private physician who remains a resource for coordinating your care. When calling for follow-up care, please make the office aware that this follow-up is from your recent emergency room visit. If for any reason you are refused follow-up, please contact the [facility] Emergency Department at and asked to speak to the emergency department charge nurse. [facility] Primary Care [address] [place] [id number] [facility] [address] [place] [id number] Thank you for choosing the [facility] emergency department in [place] for your medical needs today. It was a pleasure caring for you. Today you were seen in the emergency department for chest pain. Your [place] was electronically sent to: [place] [facility] 1. You were evaluated today on an emergent basis. Your lab work, cardiac enzymes, chest x-ray, and EKG are within normal limits. 2. You can alternate Tylenol and ibuprofen as needed for pain and fever management. 3. We encourage you to follow up with your primary care provider and/or recommended specialist in the next few days for re-evaluation and further care/management. 4. If your symptoms should worsen, new symptoms develop or any of the signs and symptoms we discussed should arise please return to the emergency room or call 911 (if needed). Sepsis Event Note (ED) - Evaluation Sepsis Screening Result: No Definite Risk - Focused Exam Vital Signs: Vital Signs Temp Pulse Resp BP Pulse Ox 07/09/21 13:30 97.2 F 56 L 16 119/59 L 99
[2021-07-09 15:18] VITALS: BP 124/58; PULSE 73
== END 2021-07-09 15:20 | disposition home or self-care (01) ==
LOC: MW.ED 13:08
DX: R07.89 Other chest pain (principal); R42 Dizziness and giddiness; R06.02 Shortness of breath; Z72.0 Tobacco use; Z20.822 Contact with and (suspected) exposure to COVID-19
CPT/HCPCS: 36415; 71045; 80053; 84484; 85025; 87635; 96374; 99285; J1885; J7030; U0002

== ENCOUNTER 2021-07-15 18:34 | Emergency (ER) | payer BC ==
[2021-07-15 22:13] VITALS: BP 161/84; PULSE 79
--- NOTE | 2021-07-15 22:14 | EDM.PDOC ---
ED HPI GENERAL MEDICAL PROBLEM - General Chief Complaint: Genitourinary Problem Stated Complaint: BLOOD IN URINE Time Seen by Provider: 07/15/21 22:09 Source of Information: Reports: Patient History Limitations: Reports: No Limitations - History of Present Illness INITIAL COMMENTS - FREE TEXT/NARRATIVE: 25-year-old male presents with dysuria, urinary urgency and hematuria over the past 2 weeks. He denies fever, chills, penile discharge, back pain, abdominal pain, scrotal pain. He is sexually active with multiple partners. ROS: A 10-point review of systems, other than pertinent positives and negatives as stated per HPI, is otherwise negative Past medical history: No additional pertinent history Past Surgical history: No additional pertinent history Social history: No additional pertinent history Family history: No additional pertinent history PHYSICAL EXAM General: AOx4, GCS = 15, No distress HEENT: dry mucous membrane Neck: supple, no meningismus, no Kernig or Brudzinski Cardiac: S1S2 RRR Respiratory: CTAB, no crackles or rales, no wheezing Abdomen: Soft, nontender, no rebound or guarding, nondistended, no pulsatile mass. Back: nontender Musculoskeletal: NVI distally, no deformity Neuro: No focal deficits, CN 2 - 12 WNL. - Related Data Allergies Allergy/AdvReac Type Severity Reaction Status Date / Time No Known Allergies Allergy Verified 07/15/21 19:29 Home Meds: Home Meds cephALEXin [Cephalexin] 1 dose PO DAILY 07/15/21 [History] Past Medical History - Past Health History Medical/Surgical History: Denies Medical/Surgical History - Infectious Disease History Infectious Disease History: Reports: None Social & Family History - Family History Family Medical History: No Pertinent Family History - Caffeine Use Caffeine Use: Reports: None - Recreational Drug Use Recreational Drug Use: Yes Recreational Drug Type: Reports: Marijuana/Hashish ED ROS GENERAL - Review of Systems Review Of Systems: See Below (see dictation) ED EXAM, RENAL/ - Physical Exam Exam: See Below (see dictation) Course - Vital Signs Last Recorded V/S: Last Vital Signs Temp 97.1 F 07/15/21 19:30 Pulse 73 07/15/21 19:30 Resp 16 07/15/21 19:30 BP 119/66 07/15/21 19:30 Pulse Ox 99 07/15/21 19:30 - Orders/Labs/Meds Orders: Active Orders 24 hr Category Date Time Status CHLAMYDIA AND GONORRHEA BY TMA Stat Lab 07/15/21 19:39 Received Labs: Laboratory Tests 07/15/21 Range/Units 19:39 Urine Color YELLOW Urine Appearance CLEAR Urine pH 7.0 (5.0-8.0) Ur Specific [place] 1.015 (1.001-1.035) Urine Protein NEGATIVE (NEGATIVE) mg/dL Urine Glucose (UA) NEGATIVE (NEGATIVE) mg/dL Urine Ketones NEGATIVE (NEGATIVE) mg/dL Urine Occult Blood NEGATIVE (NEGATIVE) Urine Nitrite NEGATIVE (NEGATIVE) Urine Bilirubin NEGATIVE (NEGATIVE) Urine Urobilinogen 1.0 (<2.0) EU/dL Ur Leukocyte Esterase NEGATIVE (NEGATIVE) - Re-Assessments/Exams Free Text/Narrative Re-Assessment/Exam: 07/15/21 22:09 he is currently stable for discharge. I performed a repeat exam and did not appreciate new abnormal findings. Patient exhibits normal vital signs and has a normal gait on road test. I advised the patient to return to the ER for reevaluation if symptoms worsened, including fever, worsening pain, or any other worrisome symptoms. I instructed the patient to follow up with their PCP within 2-3 days. MEDICAL DECISION MAKING: I reviewed the patients past medical records, lab and radiographic findings. I discussed the case with the patient. My differential diagnosis included: Currently a, chlamydia, urethritis, UTI. Urine does not demonstrate UTI. Gonorrhea chlamydia sent out and results are pending. Departure - Departure Time of Disposition: 22:11 Disposition: Home, Self-Care 01 Condition: Good Clinical Impression: Urethritis - Discharge Information *PRESCRIPTION DRUG MONITORING PROGRAM REVIEWED*: Not Applicable *COPY OF PRESCRIPTION DRUG MONITORING REPORT IN PATIENT ESTRADA: Not Applicable Instructions: Urethritis, Adult Referrals: PCP,None [Primary Care Provider] - Additional Instructions: The need for follow-up, as well as the timing and circumstances, are variable depending upon the specifics of your emergency department visit. If you don't have a primary care physician on staff, we will provide you with a referral. We always advise you to contact your personal physician following an emergency department visit to inform them of the circumstance of the visit and for follow-up with them and/or the need for any referrals to a consulting specialist. The emergency department will also refer you to a specialist when appropriate. This referral assures that you have the opportunity for follow-up care with a specialist. All of these measure are taken in an effort to provide you with optimal care, which includes your follow-up. Under all circumstances we always encourage you to contact your private physician who remains a resource for coordinating your care. When calling for follow-up care, please make the office aware that this follow-up is from your recent emergency room visit. If for any reason you are refused follow-up, please contact the [facility] Emergency Department at and asked to speak to the emergency department charge nurse. If you do not have a primary care doctor, please follow up with the clinics below within 3-5 days. [facility] - Primary Care [address] [place] [address] [facility] [address] [place] [address] Sepsis Event Note (ED) - Evaluation Sepsis Screening Result: No Definite Risk - Focused Exam Vital Signs: Vital Signs Temp Pulse Resp BP Pulse Ox 07/15/21 19:30 97.1 F 73 16 119/66 99 - My Orders Last 24 Hours: My Active Orders 07/15/21 19:39 CHLAMYDIA AND GONORRHEA BY TMA Stat - Assessment/Plan Last 24 Hours: My Active Orders 07/15/21 19:39 CHLAMYDIA AND GONORRHEA BY TMA Stat
[2021-07-17 16:07] LABS: C.TRACHOMATIS BY TMA Negative (Negative); N.GONORRHOEAE BY TMA Negative (Negative)
== END 2021-07-15 22:19 | disposition home or self-care (01) ==
LOC: MW.ED 18:34
DX: N34.2 Other urethritis (principal)
CPT/HCPCS: 81003; 87491; 87591; 99283

== ENCOUNTER 2021-07-28 03:32 | Emergency (ER) | payer BC ==
--- NOTE | 2021-07-28 03:49 | EDM.PDOC ---
ED HPI GENERAL MEDICAL PROBLEM - General Chief Complaint: Chest Pain Stated Complaint: CHEST PAINS Time Seen by Provider: 07/28/21 03:33 - History of Present Illness INITIAL COMMENTS - FREE TEXT/NARRATIVE: History of present illness: [] Patient is complaining of chest pain. He has episodic chest pain that last 15 minutes or so for 3 days. Nothing brings it on. It is a little worse when he breathes. It is associated with some mild shortness of breath and diaphoresis. There is no nausea. He has no fever and chills. He does not have a cough. Coronary vessel risk-the patient smokes and he is heavy. There is no family history of coronary vessel disease heart attacks or strokes. Patient's not diabetic not treated for blood pressure or cholesterol. Thromboembolic disease risk-patient is heavy and smokes but he has no recent travel no recent surgery no recent cast no recent immobilization and there is no personal or family history of thromboembolic disease. He has no leg pain or swelling. Patient was seen 07/15/2021 and started on cephalexin for urethritis. There is no culture available at that time. GC and Chlamydia are negative. Review of systems: As per history of present illness and below otherwise all systems reviewed and negative. Past medical history: As per history of present illness and as reviewed below otherwise noncontributory. Surgical history: As per history of present illness and as reviewed below otherwise noncontributory. Social history: No reported history of drug or alcohol abuse. Family history: As per history of present illness and as reviewed below otherwise noncon tributory. Physical exam: Constitutional - well developed, well-nourished and in no acute distress HEENT - normocephalic, no evidence of trauma - external nose and mouth normal - no mass in neck and no JVD - mucosae moist EYES - full EOM, PERRL, no icterus - no evidence of inflammation, injection, or drainage Respiratory - no respiratory distress, equal bilateral expansion, lungs clear to auscultation and no abnormal lung sounds Cardiovascular - Regular Rhythm with S1 and S2 appreciated and no murmur, gallop or rub. GI - abdomen soft without distension or organomegaly - normal bowel sounds - no guard or rebound Musculoskeletal no gross deformity of long bones or joints - no tenderness, swelling or edema Neurologic - Alert and oriented times four - CN II-XII grossly intact - motor s ensory and coordination symmetrically normal Psychiatric - appropriate mood and affect with normal thought content Hematologic - No petechiae or purpura - mucosa appropriate color and sclera not pale - normal nail bed color and refill Integument - no rash or evidence of trauma - normal turgor Diagnostics: [] Therapeutics: [] Impression: [] Plan: [] Definitive disposition and diagnosis as appropriate pending reevaluation and review of above. Left Upper Chest Pain Score (Numeric/FACES): 8 - Related Data Allergies Allergy/AdvReac Type Severity Reaction Status Date / Time No Known Allergies Allergy Verified 07/28/21 03:42 Home Meds: Home Meds . [No Known Home Meds] 07/28/21 [History] Past Medical History - Past Health History Medical/Surgical History: Denies Medical/Surgical History - Infectious Disease History Infectious Disease History: Reports: None Social & Family History - Family History Family Medical History: No Pertinent Family History - Tobacco Use Tobacco Use Status *Q: Never Tobacco User Second Hand Smoke Exposure: No - Caffeine Use Caffeine Use: Reports: None - Recreational Drug Use Recreational Drug Use: Yes Drug Use in Last 12 Months: Yes Recreational Drug Type: Reports: Marijuana/Hashish ED ROS GENERAL - Review of Systems Review Of Systems: Comprehensive ROS is negative, except as noted in HPI. ED EXAM, GENERAL - Physical Exam Exam: See Below Free Text/Narrative:: My physical exam is in the HPI #1 Interpretation EKG Interpretation Comments: EKG done 07/28/2021 at 3:42 AM is sinus rhythm with a heart rate of 59 a WV interval of 131 QT duration 418 and axis 71. The QRS ST and T are normal. Impression normal EKG Course - Vital Signs Last Recorded V/S: Last Vital Signs Temp 36.8 C 07/28/21 03:37 Pulse 58 L 07/28/21 03:37 Resp 14 07/28/21 03:37 BP 111/55 L 07/28/21 03:37 Pulse Ox 99 07/28/21 03:37 - Orders/Labs/Meds Orders: Active Orders 24 hr Category Date Time Status Sodium Chloride 0.9% [Saline Flush] Med 07/28/21 03:57 Active 10 ml FLUSH ASDIRECTED PRN Sodium Chloride 0.9% [Saline Flush] Med 07/28/21 03:57 Active 2.5 ml FLUSH ASDIRECTED PRN Saline Lock Insert [OM.PC] Stat Oth 07/28/21 03:57 Ordered Medication Orders Sodium Chloride (Sodium Chloride 0.9% 10 Ml Syringe) 10 ml FLUSH ASDIRECTED PRN PRN Reason: Keep Vein Open Sodium Chloride (Sodium Chloride 0.9% 2.5 Ml Syringe) 2.5 ml FLUSH ASDIRECTED PRN PRN Reason: Keep Vein Open Labs: Laboratory Tests 07/28/21 07/28/21 Range/Units 04:15 04:15 WBC 9.08 (4.0-11.0) K/uL RBC 4.92 (4.50-5.90) M/uL Hgb 14.3 (13.0-17.0) g/dL Hct 43.4 (38.0-50.0) % MCV 88.2 (80.0-98.0) fL MCH 29.1 (27.0-32.0) pg MCHC 32.9 (31.0-37.0) g/dL RDW Std Deviation 43.8 (28.0-62.0) fl RDW Coeff of Brenda 14 (11.0-15.0) % Plt Count 136 L (150-400) K/uL MPV 10.90 (7.40-12.00) fL Neut % (Auto) 59.2 (48.0-80.0) % Lymph % (Auto) 30.9 (16.0-40.0) % Angelina % (Auto) 6.8 (0.0-15.0) % Eos % (Auto) 2.9 (0.0-7.0) % Baso % (Auto) 0.2 (0.0-1.5) % Neut # (Auto) 5.4 (1.4-5.7) K/uL Lymph # (Auto) 2.8 H (0.6-2.4) K/uL Angelina # (Auto) 0.6 (0.0-0.8) K/uL Eos # (Auto) 0.3 (0.0-0.7) K/uL Baso # (Auto) 0.0 (0.0-0.1) K/uL Nucleated RBC % 0.0 /100WBC Nucleated RBCs # 0 K/uL Sodium 142 (136-148) mmol/L Potassium 3.8 (3.5-5.1) mmol/L Chloride 103 (98-107) mmol/L Carbon Dioxide 28.1 (21.0-32.0) mmol/L BUN 23 H (7.0-18.0) mg/dL Creatinine 1.8 H (0.8-1.3) mg/dL Est Cr Clr Drug Dosing 74.21 mL/min Estimated GFR (MDRD) 47.0 ml/min Glucose 100 (74-106) mg/dL Calcium 8.3 L (8.5-10.1) mg/dL Total Bilirubin 0.2 (0.2-1.0) mg/dL AST 42 H (15-37) IU/L ALT 80 H (14-63) IU/L Alkaline Phosphatase 60 (46-116) U/L Troponin I < 0.050 (0.000-0.056) ng/mL Total Protein 6.7 (6.4-8.2) g/dL Albumin 3.5 (3.4-5.0) g/dL Globulin 3.2 (2.6-4.0) g/dL Albumin/Globulin Ratio 1.1 (0.9-1.6) Meds: Medications Generic Name Dose Route Start Last Admin Trade Name Freq PRN Reason Stop Dose Admin Sodium Chloride 10 ml 07/28/21 03:57 Sodium Chloride 0.9% 10 Ml Syringe FLUSH ASDIRECTED PRN Keep Vein Open Sodium Chloride 2.5 ml 07/28/21 03:57 Sodium Chloride 0.9% 2.5 Ml Syringe FLUSH ASDIRECTED PRN Keep Vein Open Discontinued Medications Generic Name Dose Route Start Last Admin Trade Name Freq PRN Reason Stop Dose Admin Ketorolac Tromethamine 30 mg 07/28/21 04:21 07/28/21 04:28 Ketorolac 30 Mg/Ml Sdv IM 07/28/21 04:22 Not Given ONETIME ONE Ketorolac Tromethamine 30 mg 07/28/21 04:25 07/28/21 04:30 Ketorolac 30 Mg/Ml Sdv IM 07/28/21 04:26 30 mg ONETIME ONE Administration - Re-Assessments/Exams Free Text/Narrative Re-Assessment/Exam: 07/28/21 05:04 Patient feels better Departure - Departure Time of Disposition: 05:03 Disposition: Home, Self-Care 01 Condition: Good Clinical Impression: Chest pain - Discharge Information Instructions: Nonspecific Chest Pain, Adult, [id number] Referrals: PCP,None [Primary Care Provider] - Forms: ED Department Discharge Additional Instructions: Laboratory abnormalities include slight elevation of liver enzymes and possible dehydration. Drink plenty of fluids and when you go to the primary care clinic to follow-up have them recheck your labs. Avoid excessive Tylenol alcohol or anything that might affect her liver. I recommend NSAIDs for the pain. [facility] [address] [place] [id number] [id number] The following information is given to patients seen in the emergency department who are being discharged to home. This information is to outline your options for follow-up care. We provide all patients seen in our emergency department with a follow-up referral. The need for follow-up, as well as the timing and circumstances, are variable depending upon the specifics of your emergency department visit. If you don't have a primary care physician on staff, we will provide you with a referral. We always advise you to contact your personal physician following an emergency department visit to inform them of the circumstance of the visit and for follow-up with them and/or the need for any referrals to a consulting specialist. The emergency department will also refer you to a specialist when appropriate. This referral assures that you have the opportunity for follow-up care with a specialist. All of these measure are taken in an effort to provide you with optimal care, which includes your follow-up. Under all circumstances we always encourage you to contact your private physician who remains a resource for coordinating your care. When calling for follow-up care, please make the office aware that this follow-up is from your recent emergency room visit. If for any reason you are refused follow-up, please contact the [facility] Emergency Department at and asked to speak to the emergency department charge nurse. Sepsis Event Note (ED) - Focused Exam Vital Signs: Vital Signs Temp Pulse Resp BP Pulse Ox 07/28/21 03:37 36.8 C 58 L 14 111/55 L 99 - My Orders Last 24 Hours: My Active Orders 07/28/21 03:57 Sodium Chloride 0.9% [Saline Flush] 10 ml FLUSH ASDIRECTED PRN Sodium Chloride 0.9% [Saline Flush] 2.5 ml FLUSH ASDIRECTED PRN Saline Lock Insert [OM.PC] Stat - Assessment/Plan Last 24 Hours: My Active Orders 07/28/21 03:57 Sodium Chloride 0.9% [Saline Flush] 10 ml FLUSH ASDIRECTED PRN Sodium Chloride 0.9% [Saline Flush] 2.5 ml FLUSH ASDIRECTED PRN Saline Lock Insert [OM.PC] Stat
[2021-07-28] MEDS ORDERED: Sodium Chloride 0.9% 10 ML Syringe FLUSH PRN (03:57)
[2021-07-28] MEDS ORDERED: Sodium Chloride 0.9% 2.5 ML Syringe FLUSH PRN (03:57)
--- NOTE | 2021-07-28 04:12 | CR ---
INDICATION: Chest pain TECHNIQUE: Chest radiograph 1 view on 2 films COMPARISON: 07/09/2021 FINDINGS: The sensitivity and specificity of the exam are moderately limited by the patient`s body habitus. Mediastinum: The mediastinum is normal in appearance. The heart silhouette is normal in size and morphology. Lung: Both lungs are unremarkable in appearance. No sign of pleural effusion seen. No pneumothorax is identified. Bone and Soft tissue: Unremarkable for age. IMPRESSION: 1. No acute cardiopulmonary disease is seen. Dictated by: Gino Bello MD @ 07/28/2021 04:11:38 (Electronically Signed)
[2021-07-28] MEDS ORDERED: Ketorolac 30 MG/ML SDV IM ONE ×2 (04:21→04:25)
[2021-07-28 04:46] LABS: BLOOD UREA NITROGEN,BUN 23 mg/dL (7.0-18.0); CARBON DIOXIDE,CO2 28.1 mmol/L (21.0-32.0); CHLORIDE,CL 103 mmol/L (98-107); GLUCOSE RANDOM 100 mg/dL (74-106); POTASSIUM,K 3.8 mmol/L (3.5-5.1); SODIUM,NA 142 mmol/L (136-148)
[2021-07-28 05:16] VITALS: BP 115/60; PULSE 61
== END 2021-07-28 05:14 | disposition home or self-care (01) ==
LOC: MW.ED 03:32
DX: R07.9 Chest pain, unspecified (principal)
CPT/HCPCS: 36415; 71045; 80053; 84484; 85025; 93005; 96372; 99285; J1885

== ENCOUNTER 2021-09-10 20:27 | Emergency (ER) | payer SELFPAY ==
[2021-09-10] MEDS ORDERED: Ketorolac 30 MG/ML SDV IVPUSH ONE (20:44)
[2021-09-10] MEDS ORDERED: Sodium Chloride 0.9% 1,000 ML IV ONE (20:44)
[2021-09-10 21:40] LABS: BLOOD UREA NITROGEN,BUN 14 mg/dL (7.0-18.0); CARBON DIOXIDE,CO2 29.9 mmol/L (21.0-32.0); CHLORIDE,CL 103 mmol/L (98-107); GLUCOSE RANDOM 83 mg/dL (74-106); POTASSIUM,K 3.9 mmol/L (3.5-5.1); SODIUM,NA 141 mmol/L (136-148)
[2021-09-10 21:48] LABS: CORONAVIRUS COVID-19 NAA NEGATIVE (NEGATIVE); INFLUENZA A NAA NEGATIVE (NEGATIVE); INFLUENZA B NAA NEGATIVE (NEGATIVE)
[2021-09-10 22:13] VITALS: BP 116/64; PULSE 60
== END 2021-09-10 22:00 | disposition home or self-care (01) ==
LOC: MW.ED 20:27
DX: R07.89 Other chest pain (principal); G43.809 Other migraine, not intractable, without status migrainosus; Z20.822 Contact with and (suspected) exposure to COVID-19
CPT/HCPCS: 0240U; 36415; 70450; 80053; 80305; 81003; 84443; 84484; 85025; 93005; 96374; 99285; J1885; J7030

== ENCOUNTER 2022-01-21 19:08 | Emergency (ER) | payer BC ==
[2022-01-21] MEDS ORDERED: methylPREDNISolone Sodium Succinate 125 MG/2 ML SDV IM ONE (20:06)
[2022-01-21] MEDS ORDERED: Acetaminophen/HYDROcodone 325-5 MG Tab PO ONE (20:07)
[2022-01-21 20:43] LABS: BLOOD UREA NITROGEN,BUN 20 mg/dL (7.0-18.0); CARBON DIOXIDE,CO2 28.5 mmol/L (21.0-32.0); CHLORIDE,CL 101 mmol/L (98-107); GLUCOSE RANDOM 105 mg/dL (74-106); LIPASE 67 U/L (73-393); POTASSIUM,K 3.8 mmol/L (3.5-5.1); SODIUM,NA 137 mmol/L (136-148)
[2022-01-21] MEDS ORDERED: Ketorolac 30 MG/ML SDV IM ONE (22:22)
[2022-01-21 22:54] VITALS: BP 122/66; PULSE 65
== END 2022-01-21 22:53 | disposition home or self-care (01) ==
LOC: MW.ED 19:08
DX: M54.42 Lumbago with sciatica, left side (principal)
CPT/HCPCS: 36415; 72131; 74176; 80053; 81003; 83690; 85025; 96372; 99284; A9270; J2930

== ENCOUNTER 2022-02-06 17:35 | Observation (INO) | payer BC ==
[2022-02-06 19:24] LABS: BLOOD UREA NITROGEN,BUN 23 mg/dL (7.0-18.0); CARBON DIOXIDE,CO2 25.6 mmol/L (21.0-32.0); CHLORIDE,CL 103 mmol/L (98-107); ESTIMATED GFR > 60.0 ml/min; GLUCOSE RANDOM 78 mg/dL (74-106); POTASSIUM,K 3.4 mmol/L (3.5-5.1); SODIUM,NA 139 mmol/L (136-148)
[2022-02-06] MEDS ORDERED: Sodium Chloride 0.9% 1,000 ML IV ONE ×2 (20:07)
[2022-02-06] MEDS ORDERED: Albuterol/Ipratropium 3.0-0.5 MG/3 ML Neb Soln NEB PRN (20:12)
[2022-02-06] MEDS ORDERED: Ondansetron 4 MG/2 ML SDV IVPUSH PRN (20:12)
[2022-02-06] MEDS ORDERED: Acetaminophen 325 MG Tab PO PRN (20:12)
[2022-02-06] MEDS ORDERED: Lactated Ringers 1,000 ML IV SCH ×2 (20:15)
[2022-02-06] MEDS: Lactated Ringers 1,000 ML IV SCH ×2 (20:16→22:36)
[2022-02-06] MEDS ORDERED: Potassium Chloride 10% 20 MEQ/15 ML Soln 30 ML UD Cup PO ONE (20:23)
[2022-02-06 23:00] LABS: BLOOD UREA NITROGEN,BUN 19 mg/dL (7.0-18.0); CARBON DIOXIDE,CO2 27.3 mmol/L (21.0-32.0); CHLORIDE,CL 105 mmol/L (98-107); GLUCOSE RANDOM 91 mg/dL (74-106); POTASSIUM,K 4.3 mmol/L (3.5-5.1); SODIUM,NA 140 mmol/L (136-148)
[2022-02-06 23:01] LABS: ESTIMATED GFR > 60.0 ml/min
[2022-02-07 03:26] LABS: BLOOD UREA NITROGEN,BUN 20 mg/dL (7.0-18.0); CARBON DIOXIDE,CO2 25.1 mmol/L (21.0-32.0); CHLORIDE,CL 107 mmol/L (98-107); ESTIMATED GFR > 60.0 ml/min; GLUCOSE RANDOM 97 mg/dL (74-106); POTASSIUM,K 3.9 mmol/L (3.5-5.1); SODIUM,NA 141 mmol/L (136-148)
[2022-02-07] MEDS: Lactated Ringers 1,000 ML IV SCH ×2 (05:21→12:33)
[2022-02-07 08:04] LABS: BLOOD UREA NITROGEN,BUN 18 mg/dL (7.0-18.0); CARBON DIOXIDE,CO2 24.5 mmol/L (21.0-32.0); CHLORIDE,CL 107 mmol/L (98-107); ESTIMATED GFR > 60.0 ml/min; GLUCOSE RANDOM 98 mg/dL (74-106); POTASSIUM,K 4.2 mmol/L (3.5-5.1); SODIUM,NA 141 mmol/L (136-148)
[2022-02-07 10:54] LABS: BLOOD UREA NITROGEN,BUN 15 mg/dL (7.0-18.0); CARBON DIOXIDE,CO2 27.2 mmol/L (21.0-32.0); CHLORIDE,CL 107 mmol/L (98-107); GLUCOSE RANDOM 104 mg/dL (74-106); POTASSIUM,K 4.5 mmol/L (3.5-5.1); SODIUM,NA 140 mmol/L (136-148)
[2022-02-07 10:57] LABS: ESTIMATED GFR > 60.0 ml/min
[2022-02-07] MEDS ORDERED: Lactated Ringers 1,000 ML IV SCH (12:30)
[2022-02-07 15:14] VITALS: BP 141/88; PULSE 76
== END 2022-02-07 15:44 | disposition home or self-care (01) ==
LOC: MW.ED 17:35 → MW.MS 20:05
PROVIDERS: ADMIT Student in an Organized Health Care Education/Training Program; ATTEND Student in an Organized Health Care Education/Training Program
DX: T52.8X1A Toxic effect of other organic solvents, accidental (unintentional), initial encounter (principal); M62.82 Rhabdomyolysis
CPT/HCPCS: 36415; 80053; 80307; 81003; 82550; 93005; 93010; 96360; 96361; 99284; 99284-25; A9270-GY; G0378; J7120

== ENCOUNTER 2022-02-24 12:05 | Emergency (ER) | payer BC ==
[2022-02-24 13:57] VITALS: BP 144/61; PULSE 58
[2022-02-24 14:53] LABS: C. TRACHOMATIS BY PCR NOT DETECTED; N. GONORRHOEAE BY PCR NOT DETECTED
== END 2022-02-24 14:18 | disposition home or self-care (01) ==
LOC: MW.ED 12:05
DX: Z77.21 Contact with and (suspected) exposure to potentially hazardous body fluids (principal)
CPT/HCPCS: 36415; 86592; 86803; 87340; 87389; 87491; 87591; 99282; 99283

== ENCOUNTER 2022-03-12 12:08 | Emergency (ER) | payer BC ==
[2022-03-12 12:16] VITALS: PULSE 66
[2022-03-12] MEDS ORDERED: Ketorolac 30 MG/ML SDV IVPUSH ONE (12:19)
[2022-03-12] MEDS ORDERED: Sodium Chloride 0.9% 1,000 ML IV ONE (12:21)
[2022-03-12 13:10] LABS: CARBON DIOXIDE,CO2 24.8 mmol/L (21.0-32.0)
[2022-03-12 13:20] VITALS: BP 107/63
== END 2022-03-12 13:31 | disposition home or self-care (01) ==
LOC: MW.ED 12:08
DX: R10.13 Epigastric pain (principal); Z79.899 Other long term (current) drug therapy; Z86.16 Personal history of COVID-19
CPT/HCPCS: 36415; 71045; 80053; 83690; 85025; 96361; 96374; 99284; J1885; J7030